=== PATIENT | male | born 1940 | race Caucasian/White ===

== ENCOUNTER → 2018-11-13 | Day surgery (SDC) | payer MEDICARE ==
[~2018-11-13] MED LIST: Buffered Lidocaine 1% SYRIN* 1 ML/SYRINGE INTRADERM ONE; Dexamethasone IV* 4 MG/ML 1 ML (4 MG) IV SLOW PU ONE; Dexamethasone IV* 4 MG/ML 1 ML (4 MG) ONE; DiMENhydriNATE IV* 50 MG/ML VIAL IV PUSH PRN; EPHEDrine (Pressors)* 50 MG/ML VIAL ONE; Famotidine IV* 10 MG/ML 2 ML (20 mg) IV ONE; Famotidine IV* 10 MG/ML 2 ML (20 mg) ONE; HYDROcodone/ACETAMIN 5-325 MG* 1 TAB PO PRN; Lactated Ringers 1000 ML Bag* 1,000 ML IV SCH; Lidocaine 1% w EPI 1:100,000* MDV 20 ML VIAL ONE; Lidocaine 2% PF * 5 ML VIAL ONE; Naloxone* 0.4 MG/ML 1 ML VIAL IV PRN; Ondansetron INJ* 2 MG/ML VIAL ONE; Propofol* 10 MG/ML 20 ML BTL ONE; Remifentanil* 2 MG VIAL ONE; Succinylcholine* 20 MG/ML 10 ML VIAL ONE; fentaNYL* 50 MCG/ML 2 ML VIAL (100 MCG VIAL) IV PRN; fentaNYL* 50 MCG/ML 2 ML VIAL (100 MCG VIAL) ONE; oxyCODONE/Acetamin 5/325 MG* TAB ONE; oxyCODONE/Acetamin 5/325 MG* TAB PO PRN
[2018-11-13 12:16] VITALS: BP 162/86
--- NOTE | 2018-11-13 13:54 | OP ---
DATE OF OPERATION: 11/13/18 [facility] DATE OF : 44 SURGEON: Teddy Browne MD SINGLE SPINDLE SCREW MACHINE OPERATOR: Manoj Jewell MD ANESTHESIA: General. PRE-OP DIAGNOSIS: Neoplasm, uncertain behavior of thyroid. POST-OP DIAGNOSIS: Neoplasm, uncertain behavior of thyroid. OPERATIVE PROCEDURE: Left thyroid lobectomy. ESTIMATED BLOOD LOSS: Less than 20 cc. SPECIMEN: Left lobe of thyroid for permanent section. INDICATIONS: This is a 78-year-old male who had a left thyroid nodule palpated on routine physical exam. 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 Recommendation was for removal of the left lobe of the thyroid to ascertain whether this is thyroid cancer or not. DESCRIPTION OF PROCEDURE: On 11/13/18, the patient was brought to the operating room. General anesthesia was induced. An NIMS endotracheal tube was placed and found to be in good position with the glide scope laryngoscope. The patient was then placed on a shoulder roll. His neck was marked and cleansed with alcohol. An injection of 1% lidocaine with 1:100,000 epinephrine was made into the subcutaneous space. Approximately 6 cc were used. The neck was then prepped with Betadine. The patient was draped sterilely. A timeout was performed. The skin was divided with a 15-blade down through the platysma. Subplatysmal flaps were raised and the Kayode self-retaining device was placed into the wound. The strap muscles were then divided vertically along the median raphe. They were then reflected off of the left lobe thyroid. Once the left lobe and thyroid was exposed, the superior vascular pedicle was identified. It was ligated with hemoclips and the LigaSure device. Once the superior pole was mobilized, attention was turned inferiorly. The recurrent laryngeal nerve was readily identified in the tracheoesophageal groove. Its identity was confirmed with a nerve stimulator. This was used as a landmark to guide for the dissection. Inferior vascular pedicle was ligated and divided with hemoclips and LigaSure device close to the capsule of the thyroid gland as possible in order to preserve blood supply to the parathyroids. The middle thyroid vein was then ligated and divided. The thyroid was rolled medially. The recurrent laryngeal nerve was followed through to its insertion point into the larynx and was protected while the thyroid was reflected off of Yo's ligament. The thyroid isthmus was identified and divided with a Bovie cautery and then final attachments were freed off between the left lobe of the thyroid and the anterior wall of the trachea. Once the thyroid was removed, the wound was inspected. Valsalva was performed. A couple small areas of oozing were easily controlled with a bipolar cautery. 3-0 silk ties were placed on a couple of vessels that were bleeding at the level of the strap muscles. Once good hemostasis was achieved, the wound was copiously irrigated. The nerve stimulator was used to confirm the integrity of the left recurrent laryngeal nerve. A small piece of Surgicel was then placed into the wound. Wound was closed in layers. The strap muscles were first closed with 3-0 Vicryl. Platysma muscles were closed as well using interrupted stitches with 3-0 Vicryl. Skin was closed with 4-0 Monocryl and a final layer of Steri-Strips and Mastisol were placed. The patient was then returned to the care of the anesthesiologist and extubated and delivered to the PACU in stable condition. [id number] #: [id number] ALISSA
== END | disposition home or self-care (01) ==
LOC: OR 07:06
PROVIDERS: ATTEND Otolaryngology
DX: E04.1 Nontoxic single thyroid nodule (principal); I10 Essential (primary) hypertension; E78.5 Hyperlipidemia, unspecified; K21.9 Gastro-esophageal reflux disease without esophagitis; N40.0 Benign prostatic hyperplasia without lower urinary tract symptoms
CPT/HCPCS: 88307; A9270-GY; J0330; J1100; J2405; J2704; J3010